=== PATIENT | female | born 1990 | race Asian ===

== ENCOUNTER 2023-07-15 12:35 | Emergency (ER) | payer BC ==
[~2023-07-15] VITALS: Ht 162.6 cm; Wt 59.0 kg
[2023-07-15 12:58] VITALS: BP 123/76; PULSE 89; RESP 18; TEMP 97; O2SAT 98
[2023-07-15 13:18] VITALS: BP 123/76; PULSE 89; RESP 18; TEMP 97; O2SAT 98
== END 2023-07-15 13:16 | disposition home or self-care (01) ==
LOC: MED 12:35
DX: O9A.212 Injury, poisoning and certain other consequences of external causes complicating pregnancy, second trimester (principal); S01.01XA Laceration without foreign body of scalp, initial encounter; Z3A.23 23 weeks gestation of pregnancy; Z88.4 Allergy status to anesthetic agent; W01.198A Fall on same level from slipping, tripping and stumbling with subsequent striking against other object, initial encounter; Y92.89 Other specified places as the place of occurrence of the external cause; Y93.89 Activity, other specified; Y99.8 Other external cause status
CPT/HCPCS: 99282

== ENCOUNTER 2023-07-23 14:26 | Emergency (ER) | payer BC ==
[~2023-07-23] VITALS: Ht 160 cm; Wt 62.1 kg
[2023-07-23 14:48] VITALS: BP 105/62; PULSE 89; RESP 20; TEMP 97.8; O2SAT 99
== END 2023-07-23 15:14 | disposition home or self-care (01) ==
LOC: MED 14:26
DX: S01.01XD Laceration without foreign body of scalp, subsequent encounter (principal); Z48.02 Encounter for removal of sutures; X58.XXXD Exposure to other specified factors, subsequent encounter
CPT/HCPCS: 99281